=== PATIENT | female | born 1950 | race Caucasian/White ===

== ENCOUNTER → 2018-11-06 07:47 | Outpatient (CLI) | payer MEDICARE, OTHER, SELFPAY ==
--- NOTE | 2018-11-06 09:40 | PM.TREADMILL ---
Cardiac Stress Test Report Referral & Results Date Patient Seen: 11/06/18 Requesting provider: Jorge L Olmedo Indication: Chest pain Rest ECG: Unremarkable Procedure Note: Today following both written and verbal informed consent, the patient was exercised according to a standard Steven protocol. The patient exercised for a total of 9 min 23 sec achieving a maximum heart rate of 160 for. Patient's maximum systolic blood pressure was 200. This was an estimated 10.[address]-T segment changes identified Normal heart rate and blood pressure response Functional aerobic impairment was way off the scale estimate her capacity to be equal to about 140% of normal on the active scale Occasional PVCs including ventricular couplets were identified in addition there were rare PACs and some aberrantly conducted sinus beats Impression: No evidence of ischemia. Excellent exercise capacity Please note: Actual ECG tracings can be found in the PACS system.
== END ==
PROVIDERS: Visit Provider Nurse Practitioner Family
DX: R07.9 Chest pain, unspecified (principal)
CPT/HCPCS: 93016; 93017; 93018

== ENCOUNTER → 2020-07-30 14:54 | Outpatient (CLI) | payer MEDICARE, OTHER, SELFPAY ==
[2020-08-01 10:46] LABS: COVID19 Sendout Positive (Not Detect)
== END ==
PROVIDERS: Visit Provider Nurse Practitioner
DX: U07.1 COVID-19 (principal)
CPT/HCPCS: 87635